=== PATIENT | female | born 1930 | race Caucasian/White ===

== ENCOUNTER → 2017-01-05 | Outpatient (CLI) | payer MEDICARE, BC ==
[~2017-01-05] MED LIST: ASPIR-LOW81 MG PO; CALCIUM CITRAT200 MG PO; CARDI-OMEGA1000 MG PO; FISH OIL1 IU PO; MVI; PEPCID20 MG PO; PRAVACHOL10 MG PO
== END ==
LOC: MHCPAIN 08:03
DX: G89.29 Other chronic pain (principal); M47.817 Spondylosis without myelopathy or radiculopathy, lumbosacral region; M54.16 Radiculopathy, lumbar region; M53.3 Sacrococcygeal disorders, not elsewhere classified; M50.90 Cervical disc disorder, unspecified, unspecified cervical region
CPT/HCPCS: G0463

== ENCOUNTER 2017-01-10 14:00 | Outpatient (RCR) | payer MEDICARE, BC | END 2017-03-01 | LOC: WSPT | DX: M48.06 Spinal stenosis, lumbar region (principal); M54.30 Sciatica, unspecified side | CPT/HCPCS: G8978-GP; G8979-GP ==

== ENCOUNTER → 2017-09-06 | Outpatient (CLI) | payer MEDICARE, BC | LOC: COL.RAD 08:13 | DX: R19.00 Intra-abdominal and pelvic swelling, mass and lump, unspecified site (principal); R10.31 Right lower quadrant pain ==

== ENCOUNTER → 2018-07-17 | Outpatient (CLI) | payer MEDICARE, BC | LOC: COL.RAD 07:19 | DX: M41.86 Other forms of scoliosis, lumbar region (principal); K86.89 Other specified diseases of pancreas; S22.080A Wedge compression fracture of T11-T12 vertebra, initial encounter for closed fracture; S32.010A Wedge compression fracture of first lumbar vertebra, initial encounter for closed fracture; Z90.49 Acquired absence of other specified parts of digestive tract | CPT/HCPCS: Q9967 ==

== ENCOUNTER 2018-08-02 10:22 | Day surgery (SDC) | payer MEDICARE, BC ==
[~2018-08-02] VITALS: Ht 162.6 cm; Wt 49.4 kg
[2018-08-02 10:50] VITALS: BP 162/79; PULSE 73
[2018-08-02] MEDS ORDERED: NEURONTIN300 MG/CAP (11:09)
[2018-08-02 12:15] VITALS: BP 166/88; PULSE 75; TEMP 97.3
[2018-08-02 12:30] VITALS: BP 152/77; PULSE 71
[2018-08-02 12:45] VITALS: BP 143/76; PULSE 74
== END 2018-08-02 13:30 | disposition home or self-care (01) ==
LOC: SDCO 10:22
DX: K57.30 Diverticulosis of large intestine without perforation or abscess without bleeding (principal); R93.3 Abnormal findings on diagnostic imaging of other parts of digestive tract; R10.13 Epigastric pain; K86.89 Other specified diseases of pancreas; G89.29 Other chronic pain; Z90.49 Acquired absence of other specified parts of digestive tract
CPT/HCPCS: J2704; J7030

== ENCOUNTER → 2019-01-02 | Outpatient (CLI) | payer MEDICARE, BC ==
[~2019-01-02] MED LIST changes: +NEURONTIN300 MG/CAP
== END ==
LOC: COL.RAD 11:37
DX: R19.09 Other intra-abdominal and pelvic swelling, mass and lump (principal)

== ENCOUNTER 2019-07-15 11:43 | Emergency (ER) | payer MEDICARE, BC ==
[~2019-07-15] VITALS: Ht 162.6 cm; Wt 50.0 kg
[2019-07-15] MEDS ORDERED: PRINIVIL20 MG PO (12:24)
[2019-07-15 12:39] LABS: BASO % 0.3 % (0.0-2.0); EOS % 0.4 % (0-4.0); GRAN # 5.1 (1.4-6.5); GRAN % 65.1 % (42.2-75.2); HEMOGLOBIN 12.4 g/dl (12.5-16.0); LYMPH # 2.1 (1.2-3.4); LYMPH % 26.4 % (20.0-51.0); MEAN CELL VOLUME 97 fl (80.0-100.0); MEAN CORPUSCULAR HEMOGLOBIN 33 pg (27.0-31.0); MEAN CORPUSCULAR HGB CONC 34 g/dl (33.0-37.0); MEAN PLATELET VOLUME 9.5 fl (7.4-10.4); MONO # 0.6 (0.1-0.6); MONO % 7.4 % (1.7-9.3); PLATELET COUNT 156 K/mm3 (130-400); RED BLOOD COUNT 3.82 M/mm3 (4.10-5.30); REDCELL DISTRIBUTION WIDTH-CV 11.2 % (11.5-14.5)
[2019-07-15 12:48] LABS: ALBUMIN 3.7 gm/dL (3.5-5.0); BILIRUBIN,TOTAL 0.6 mg/dL (0.0-1.0); CALCIUM 8.9 mg/dL (8.4-10.2); CREATININE, serum 0.5 (0.52-1.25); MAGNESIUM 1.9 mg/dL (1.6-2.3); POTASSIUM 4.1 mmol/L (3.4-5.0); TOTAL PROTEIN 6.3 gm/dL (6.4-8.2)
[2019-07-15] MEDS ORDERED: AMOXICILLIN 8751 TAB PO ×3 (14:55→16:16)
[2019-07-15] MEDS ORDERED: VANCOCIN H125 MG/CAP PO (16:16)
[2019-07-15 16:49] VITALS: BP 133/66; PULSE 82; TEMP 98.1
[2019-07-16] MEDS ORDERED: VANCOCIN H125 MG/CAP PO (08:59)
== END 2019-07-15 16:50 | disposition home or self-care (01) ==
LOC: COL.ER 11:43
PROVIDERS: Emergency Medicine
DX: K52.9 Noninfective gastroenteritis and colitis, unspecified (principal); Z90.89 Acquired absence of other organs
CPT/HCPCS: J7030; Q9967